=== PATIENT | male | born 1955 | race Caucasian/White ===

== ENCOUNTER 2017-05-13 08:32 | Day surgery (SDC) | payer MEDICARE ==
[2017-05-13] MEDS ORDERED: PROPOFOL 10 MG/ML VIAL IV ONE (08:33)
[2017-05-13] MEDS ORDERED: FENTANYL PF 100MCG/2ML VIAL IV ONE (08:33)
[2017-05-13] MEDS ORDERED: LIDOCAINE 2% MDV (20MG/ML) 20ML VIAL IV ONE (08:33)
--- NOTE | 2017-05-14 12:30 | Operative Note ---
DATE OF SURGERY: 05/13/2017 OPERATION: Screening COLONOSCOPY. PREOPERATIVE DIAGNOSIS: Average risk, 10-year followup. POSTOPERATIVE DIAGNOSIS: Sigmoid diverticulosis. PREPARATION QUALITY: Good. ESTIMATED BLOOD LOSS: None. SPECIMENS: None. COMPLICATIONS: None apparent. PROCEDURE: After informed consent was obtained from the patient, he was placed in the left lateral decubitus position in the endoscopy suite, sedated and monitored by the department of anesthesia. Digital rectal examination was unremarkable. A well-lubricated [id number] colonoscope was inserted into the rectum and advanced to the cecum. Preparation quality was good. The cecum, ileocecal valve, appendiceal orifice, ascending colon, transverse colon, descending colon, sigmoid colon, and rectum were free of inflammatory changes, mass lesions, or polyps. The sigmoid colon did reveal [id number] diverticular changes, however. J-turn views of the anorectum were unremarkable. The endoscope was straightened, the rectal ampulla deflated, and the endoscope was removed. RECOMMENDATIONS: The patient should follow a high-fiber diet and use a fiber supplement. I would recommend a repeat exam in 10 years or sooner should symptoms warrant. As always, thank you for allowing me to participate in the healthcare of your patients. CC: BROOKE GOODSON MD, FACP [facility]
== END 2017-05-13 10:00 | disposition home or self-care (01) ==
LOC: HOP 08:32
PROVIDERS: ATTEND Internal Medicine Gastroenterology
DX: Z12.11 Encounter for screening for malignant neoplasm of colon (principal); K57.30 Diverticulosis of large intestine without perforation or abscess without bleeding; E11.9 Type 2 diabetes mellitus without complications; Z79.4 Long term (current) use of insulin; M19.90 Unspecified osteoarthritis, unspecified site; E78.00 Pure hypercholesterolemia, unspecified; I10 Essential (primary) hypertension
CPT/HCPCS: 00812; G0121

== ENCOUNTER 2019-05-22 08:46 | Day surgery (SDC) | payer MEDICARE ==
[~2019-05-22 08:46] MED LIST: ACETAMINOPHEN 1,000 MG/100 ML BTL IVPB ONE
[2019-05-22] MEDS ORDERED: LIDOCAINE 2% MDV (20MG/ML) 20ML VIAL IV ONE (08:47)
[2019-05-22] MEDS ORDERED: PROPOFOL 10 MG/ML VIAL IV ONE (08:47)
[2019-05-22] MEDS ORDERED: KETOROLAC 30 MG/ML VIAL IVP ONE (08:47)
[2019-05-22] MEDS ORDERED: SEVOFLURANE 250 ML INH ONE (08:47)
[2019-05-22] MEDS ORDERED: ONDANSETRON HCL IV 4 MG/2 ML VIAL IVP ONE (08:47)
[2019-05-22] MEDS ORDERED: MIDAZOLAM HCL 2MG/2ML VIAL IV ONE (08:47)
[2019-05-22] MEDS ORDERED: EPHEDRINE SULFATE 50 MG/ML ML IV ONE (08:47)
[2019-05-22] MEDS ORDERED: RINGERS SOLUTION,LACTATED 1,000 ML IV ONE (09:48)
[2019-05-22] MEDS ORDERED: HYDROCODONE/APAP 5/325MG TABLET PO ONE (11:39)
--- NOTE | 2019-06-12 12:21 | Operative Note ---
DATE OF SURGERY: 05/22/2019 SURGEON: David Matthews DO PREOPERATIVE DIAGNOSES: 1. Right flank mass. 2. Left flank mass. POSTOPERATIVE DIAGNOSES: 1. Right flank mass. 2. Left flank mass. OPERATION: Excision of right flank mass and excision of left flank mass. PROCEDURE: The patient was brought to the operating room and placed in a supine position. General anesthesia was administered per the department of anesthesia. The patient's flanks were prepped and draped in the usual fashion. Starting on the left, the area had been marked preoperatively. This area was anesthetized with a total of 5 mL of 0.25% Sensorcaine with epinephrine. A 3 cm incision was made. This was carried down through the subcutaneous tissues to a lipomatous mass. This was excised using blunt dissection. This was then passed off the field. This measured about 3 cm. This wound was closed with 3-0 and 4-0 Vicryl. Attention now turned to the opposite side where an identical procedure was done. Here, this area measured 3.5 cm down to the subcu. This site was closed with 3-0 and 4-0 Vicryl as well. FINDINGS AT THE TIME OF SURGERY: Bilateral flank masses, one measuring 3 cm and one measuring 3.5 cm. MTDD
== END 2019-05-22 11:57 | disposition home or self-care (01) ==
LOC: SUR 08:46
PROVIDERS: ATTEND Surgery
DX: I10 Essential (primary) hypertension (principal); E78.00 Pure hypercholesterolemia, unspecified; E11.9 Type 2 diabetes mellitus without complications; B19.20 Unspecified viral hepatitis C without hepatic coma; Z87.442 Personal history of urinary calculi
CPT/HCPCS: 36416; 82948; J1885; J2405; J7120